=== PATIENT | female | born 1980 | race Caucasian/White ===

== ENCOUNTER 2020-10-09 21:35 | Emergency (ER) | payer OTHER, SELFPAY ==
[2020-10-09 21:44] VITALS: BP 104/74; PULSE 76; RESP 18; O2SAT 98; BMI 23.4
--- NOTE | 2020-10-09 21:59 | ED.ALLEREA ---
HPI - Allergic Reaction General Chief complaint: Allergic Reaction Stated complaint: allergic reaction Time Seen by Provider: 10/09/20 21:59 Source: patient Mode of arrival: ambulatory Limitations: no limitations History of Present Illness HPI narrative: This is a 39-year-old female without significant past medical history other than asthma who states that less than an hour ago her gave her some walnuts and after she swallowed then she shortly began feeling like she was having difficulty swallowing that then progressed to a burning sensation and she states that she is nauseous but denies shortness of breath however is feeling anxious. She did take a Zyrtec at home prior to presentation here in the emergency department. Related Data Allergies Allergy/AdvReac Type Severity Reaction Status Date / Time No Known Allergies Allergy Verified 10/09/20 23:42 Review of Systems Review of Systems: Pertinent positives and negatives as stated in HPI 10 point review systems is otherwise negative. PMFSH Past Medical History Source: nursing notes reviewed Social History Social History Advance Directives: No Advance Directives Information Provided: Yes Physical Exam Vital Signs: Vital Signs: Last Vital Signs Temp 97.9 F 10/09/20 22:53 Pulse 59 10/09/20 22:53 Resp 18 10/09/20 22:53 BP 106/62 10/09/20 22:53 Pulse Ox 98 10/09/20 22:53 Body Mass Index 23.4 VITAL SIGNS: Reviewed. GENERAL: Well developed, well nourished, in no acute distress. HEAD: Normocephalic/atraumatic, EYES: PERRLA, EOMI intact without pain, no nystagmus/pallor/icterus noted EARS: Ext canals without abnormality, TMs non-bulging and non-erythematous NOSE: Nares patent bilateral OROPHARYNX: no oral lesions noted, posterior pharynx clear and non-erythematous without noted tonsillar enlargement/erythema/exudates, no lip swelling/tongue swelling and no voice change NECK: Supple, no adenopathy LUNGS: No stridor, normal breath sounds. No adventitious sounds or accessory muscle use. SpO2<98> CARDIOVASCULAR: Regular rate and rhythm without noted murmurs, no JVD or lower extremity edema. ABDOMEN: Soft, non-tender, non-distended with bowel sounds. No rigidity. No guarding. No palpable masses or hernias noted MUSCULOSKELETAL: No tenderness, deformities, or effusions noted on gross inspection. EXTREMITIES: No cyanosis, clubbing or edema. SKIN: Inspection of the skin reveals no rashes, ulcerations, jaundice, pallor, or petechiae. NEUROLOGIC: Alert and oriented x 4. Strength and sensation to light touch were grossly intact x 4. Course Course Course Narrative: This is a 39-year-old female with history and clinical presentation suggestive of possible allergic reaction although there are no hives/rash at this time and patient does not have stridor or wheezing noted. However, she will be provided with Benadryl/Pepcid/steroids as she is having some mild GI symptoms. On re-evaluation patient is feeling much better and continues to deny any shortness of breath, difficulty breathing, wheezing. In addition, nausea has resolved and patient was instructed to follow-up with her primary care provider. She will be discharged in stable condition with instructions to take Benadryl as needed for any development of rash. And she was given return precautions. Patient never developed any hives, urticaria, or facial/lip/tongue swelling. Discharge Plan Discharge Clinical Impression: Allergic reaction Qualifiers: Encounter type: initial encounter Qualified Code(s): T78.40XA - Allergy, unspecified, initial encounter Patient Disposition: Home, Self-Care Instructions: Food Allergy (ED) Additional Instructions: If you develop any rash you may take [id number] Benadryl as directed on the outside packaging. However if he developed any lip/tongue/facial swelling or have any difficulty breathing he should return to the emergency department immediately. Referrals: Physician,Unknown [Primary Care Provider] - 2 days (Re-evaluation after assessment for suspected allergy to walnuts.)
[2020-10-09] MEDS: methylPREDNISolone Sod Succ/PF 125 MG/2 ML VIAL IVPUSH (22:15)
[2020-10-09] MEDS: diphenhydrAMINE HCL 50 MG/ML VIAL IVPUSH (22:15)
[2020-10-09] MEDS: Famotidine/PF 20 MG/2 ML VIAL IVPUSH (22:15)
--- NOTE | 2020-10-09 22:18 | PC.NURSE ---
IV established, medicated per MAR.
[2020-10-09 22:53] VITALS: BP 106/62; PULSE 59; RESP 18; TEMP 36.6; O2SAT 98
[2020-10-09 23:40] VITALS: BP 98/66; PULSE 66; RESP 16; O2SAT 99
--- NOTE | 2020-10-09 23:41 | PC.NURSE ---
Pt found sleeping in bed, reports some relief of discomfort while swallowing after medication administration. Pt speaking full sentences, maintaining secretions in NAD. -Hives noted. VSS. Continue to monitor.
== END 2020-10-09 23:54 | disposition home or self-care (01) ==
PROVIDERS: Emergency Provider Student in an Organized Health Care Education/Training Program
DX: T78.1XXA Other adverse food reactions, not elsewhere classified, initial encounter (principal); R11.0 Nausea; X58.XXXA Exposure to other specified factors, initial encounter
CPT/HCPCS: 96374; 96375; 99284; J1200; J2930

== ENCOUNTER 2023-07-17 17:47 | Outpatient (REF) | payer OTHER, SELFPAY ==
[2023-07-17 18:18] LABS: Appearance Urine Cloudy; Color Urine Dark Yellow; Glucose Urine UA Negative (Negative); Leukocyte Esterase Urine Moderate (2+) (Negative); Nitrite Urine Positive (Negative); UMIC TRIGGER UACC YES; Urine Blood Trace (Negative); Urine Ketones Negative (Negative); Urine Protein Trace mg/dL (Neg-Trace)
[2023-07-17 18:20] LABS: Bacteria Urine 1+ (None Seen); Hyaline Casts Urine 0-2 /LPF (0-2); UACC Culture Trigger YES; WBC Urine >50 /HPF (0-5)
== END 2023-07-17 17:48 | disposition home or self-care (01) ==
LOC: HO.HHCLNP 17:47
PROVIDERS: Visit Provider Student in an Organized Health Care Education/Training Program
DX: R30.0 Dysuria (principal)
CPT/HCPCS: 81001; 87086; 87088; 87186